=== PATIENT | female | born 1955 | race Two or more races ===

== ENCOUNTER 2018-08-03 16:27 | Emergency (ER) | payer BC ==
[~2018-08-03] VITALS: Ht 147.3 cm; Wt 62.1 kg
[2018-08-03 16:39] VITALS: BP 132/80
[2018-08-03] MEDS ORDERED: CIPROFLOXACIN HCL 500 MG TABLET ONE (16:54)
[2018-08-03] MEDS ORDERED: TDAP [DIPH/PERTUSSIS/TET] 0.5 ML VIAL IM ONE ×2 (16:54→17:00)
[2018-08-03] MEDS ORDERED: CIPROFLOXACIN HCL 250 MG TABLET PO ONE (17:00)
== END 2018-08-03 17:28 | disposition home or self-care (01) ==
LOC: ER 16:33
DX: S91.331A Puncture wound without foreign body, right foot, initial encounter (principal); I10 Essential (primary) hypertension; W22.8XXA Striking against or struck by other objects, initial encounter; Y93.89 Activity, other specified; Y92.89 Other specified places as the place of occurrence of the external cause; Y99.8 Other external cause status
CPT/HCPCS: 90471; 90715; 99283; A4606; Z7610